=== PATIENT | female | born 1975 | race Caucasian/White ===

== ENCOUNTER 2022-09-16 08:50 | Outpatient (CLI) | payer OTHER, SELFPAY ==
--- NOTE | 2022-09-16 09:15 | CRLHL7_ITS ---
For Patients: As a result of the Century Cures Act, medical imaging exams and procedure reports are released immediately into your electronic medical record. You may view this report before your referring provider. If you have questions, please contact your health care provider. BILATERAL SCREENING MAMMOGRAM WITH COMPUTER-AIDED DETECTION AND TOMOSYNTHESIS TECHNIQUE: CC and MLO views were obtained. These mammographic images have been obtained using full-field digital technique. These mammographic images were interpreted with the benefit of computer-aided detection. Breast Tomosynthesis was used in this interpretation. COMPARISON FILM: 02/22/18, 02/28/16, 04/03/14. FINDINGS: The breasts are heterogeneously dense, which may obscure small masses IMPRESSION: There is no radiographic evidence for malignancy. ASSESSMENT: BI-RADS Category 1: Negative RECOMMENDATION: Routine screening mammogram in 1 year. A lay language report of this examination will be provided to the patient. Jesse Rebolledo M.D. Diagnostic Radiologist [email or web address] NAOMI/Dictated by: Jesse Rebolledo MD @ 09/16/2022 11:28:00 AM (Electronically Signed)
== END 2022-09-16 08:51 | disposition home or self-care (01) ==
PROVIDERS: PCP Internal Medicine; Visit Provider Obstetrics & Gynecology
DX: Z12.31 Encounter for screening mammogram for malignant neoplasm of breast (principal); R92.2 Inconclusive mammogram
CPT/HCPCS: 77063; 77067

== ENCOUNTER 2022-10-23 07:00 | Outpatient (CLI) | payer OTHER, SELFPAY ==
--- NOTE | 2022-10-23 07:15 | MR_ITS ---
[address] [address] Phone:?[phone] Fax:?[phone] Referring Physician Information: Anitra Ortiz M.D. [address] [facility] [address] Phone:?[phone] Fax:?[phone] Patient:Maty Negron D.O.B:?1975 Sex:?Female Phone:?[phone] [facility] MRN:?[id number] Exam Date:?10/23/2022 ? EXAM: MRI EXAMINATION OF THE RIGHT KNEE CLINICAL INFORMATION: Right knee pain. No history of surgery to this area. Concern for possible meniscal tear. Locking. TECHNICAL INFORMATION: Coronal PD and STIR. Axial PD and T2 fat saturation. Sagittal PD and PD fat saturation images acquired. No prior studies for comparison. INTERPRETATION: Bones: There is a minimal appearance of marrow edema signal which involves the mid to anterior periphery of the medial tibial plateau. Patchy subchondral cystic changes involving the patellofemoral compartment. No occult fracture or AVN. No other abnormal bone marrow edema pattern is identified. Ligaments and tendons: The medial collateral ligament is intact, without acute sprain or tear. The iliotibial band, fibular collateral ligament, biceps femoris tendon and popliteus tendon all are intact. The anterior cruciate ligament is intact without acute sprain or tear. The posterior cruciate ligament is intact. Extensor Mechanism: The patellar and quadriceps tendons are intact. The medial and lateral retinacula are intact. Knee Joint: There is a tiny knee joint effusion. There is a small to moderate-sized slender and lobulated popliteal cyst. There is no discrete loose body seen within the joint. Medial Compartment: There is peripheral undersurface tearing identified extending from the midportion of the anterior horn medial meniscus and into the anterior root insertion. No other medial meniscal tear. No displaced flap fragment or parameniscal cyst. There is no focal chondral defect. No other significant changes of chondromalacia. Lateral Compartment: Localized undersurface fraying versus poorly defined, mild tearing involving the far posterior horn lateral meniscus. No displaced flap fragment or parameniscal cyst. There is no focal chondral defect. No other significant changes of chondromalacia. Patellofemoral articulation: There are grade 3 and 4 changes of chondromalacia involving the inferior three fourths of the lateral patellar facet as well as along the central midline patella. Grade 3 and IV chondromalacia involves the mid to inferior midline and adjacent portions of the medial and lateral trochlear groove. CONCLUSION: 1. Peripheral undersurface tear extends from the midportion of the anterior horn medial meniscus and into the anterior root insertion. No flap fragment or parameniscal cyst. 2. Localized undersurface fraying versus poorly defined, mild tearing involving the far posterior horn lateral meniscus. 3. 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 4. There is a tiny joint effusion as well as a small to moderate-sized popliteal cyst. No discrete loose body within the joint. 5. The cruciate ligaments are intact. No other residua of a ligament injury involving the knee. KES Electronically signed on 10/23/2022 10:14:00 AM by Gary Boone M.D.
== END 2022-10-23 07:01 | disposition home or self-care (01) ==
LOC: MRI 07:01
PROVIDERS: PCP Internal Medicine; Visit Provider Family Medicine
DX: M25.561 Pain in right knee (principal); M23.211 Derangement of anterior horn of medial meniscus due to old tear or injury, right knee; M23.251 Derangement of posterior horn of lateral meniscus due to old tear or injury, right knee; M22.41 Chondromalacia patellae, right knee; M25.461 Effusion, right knee; M71.21 Synovial cyst of popliteal space [Baker], right knee
CPT/HCPCS: 73721

== ENCOUNTER 2024-02-23 14:45 | Outpatient (CLI) | payer OTHER, SELFPAY ==
--- OUTSIDE RECORDS SUMMARY | 2024-02-23 14:49 | XMS_ITS | Clinical Summary ---
Author Organization [facility] Address [address], [place] [address] Care Team Providers Care Organ Installer Name Role Phone Sandra Mooney MD Primary Care Provider [phone]- [phone] Source Comments You are receiving this document as you are listed as the primary care provider,follow-up provider, or the patient has been referred to you for consultation.This is in compliance with the Medicare and[facility] EHR Incentive Program,which states Providers who transition their patient to another setting of careor provider of care or refers their patient to another provider of care shouldprovide summary care record for each transition of care or referral. [employer] Allergies No known active allergies Medications Medication Sig Dispensed Refills Start Date End Date Status multivitamin (THERAGRAN) tablet Take 1 Tablet by mouth daily. Active naproxen (NAPROSYN) 500 MG tablet Take 1 Tablet by mouth two times a day with meals. 60 Tablet 1 08/19/2020 Active Active Problems Problem Noted Date Diagnosed Date Sicca 08/19/2020 History of episcleritis 08/19/2020 Family history of rheumatoid arthritis 0 Polyarthralgia 08/19/2020 Social History Tobacco Use Types Packs/Day Years Used Date Smoking Tobacco: Never Smokeless Tobacco: Never Sex and Gender Information Value Date Recorded Sex Assigned at Not on file Gender Identity Not on file Sexual Orientation Not on file Last Filed Vital Signs Vital Sign Reading Time Taken Comments Blood Pressure 123/77 08/19/2020 12:57 PM MEAT PROCESSOR Pulse 72 08/19/2020 12:57 PM MEAT PROCESSOR Temperature 36.1 ??C (97 ??F) 08/19/2020 12:57 PM MEAT PROCESSOR Respiratory Rate - - Oxygen Saturation - - Inhaled Oxygen Concentration - - Weight - - Height - - Body Mass Index - - Plan of Treatment Health Maintenance Due Date Last Done Comments Cervical Cancer Screening Due 1975 Colon Cancer Screening Plan Due 1975 Hep C Screening (Preventive Services) 1975 Mammogram 1975 HIV Screening (Preventive Services) 1990 Adult Preventive Visit 01/28/1992 HepB (1) 1993 Cholesterol 2019 COVID-19 Vaccine (3 - 2022- season) 2023 12/23/2020, 12/02/2020 Zoster/Shingles (1 of 2) 01/28/2024 Influenza (Season Ended) 2024 020, 06/07/2019, 06/01/2018, Additional history exists DTaP/Tdap/Td (3 - Tdap) 06/20/2030 06/20/2020, 01/29 HepA Aged Out 03/05/2017 No longer eligi ble based on patient's age to complete this topic Hib Aged Out No longer eligi ble based on patient's age to complete this topic IPV (Polio) Aged Out No longer eligi ble based on patient's age to complete this topic MCV4 Aged Out No longer eligi ble based on patient's age to complete this topic Pneumococcal Aged Out No longer eligi ble based on patient's age to complete this topic Care Teams Organ Installer Relationship Specialty Start Date End Date Sandra Mooney MD [address] [place] [address] PCP - General Internal Medicine 07/22/20
== END 2024-02-23 14:46 | disposition home or self-care (01) ==
PROVIDERS: PCP Internal Medicine; Visit Provider Family Medicine
DX: M25.541 Pain in joints of right hand (principal); M25.542 Pain in joints of left hand; M25.60 Stiffness of unspecified joint, not elsewhere classified
CPT/HCPCS: 80053; 82550; 84550; 86039; 86140; 86200; 86225; 86431; 86812

== ENCOUNTER 2024-03-28 11:40 | Emergency (ER) | payer OTHER, SELFPAY ==
[2024-03-28 11:46] VITALS: BP 138/82; PULSE 72; RESP 18; TEMP 36.5; O2SAT 99; BMI 25.8
--- OUTSIDE RECORDS SUMMARY | 2024-03-28 13:09 | XMS_ITS | Clinical Summary ---
Author Organization [facility] Address [address], [place] [address] Care Team Providers Care Health Care Technician Name Role Phone Sandra Mooney MD Primary Care Provider [phone]- [phone] Source Comments You are receiving this document as you are listed as the primary care provider,follow-up provider, or the patient has been referred to you for consultation.This is in compliance with the Medicare and[facility] EHR Incentive Program,which states Providers who transition their patient to another setting of careor provider of care or refers their patient to another provider of care shouldprovide summary care record for each transition of care or referral. [employer] Allergies No known active allergies Medications Medication [...] Comments Blood Pressure 123/77 08/19/2020 12:57 PM WEB SITE ADMIN Pulse 72 08/19/2020 12:57 PM WEB SITE ADMIN Temperature 36.1 ??C (97 ??F) 08/19/2020 12:57 PM WEB SITE ADMIN Respiratory Rate - - Oxygen Saturation - [...] 12/02/2020 Zoster/Shingles (1 of 2) 01/28/2024 Influenza (#1) 2024 06/13/2020, 04/2019, 06/01/2018, Additional history exists DTaP/Tdap/Td (3 - [...] age to complete this topic Care Teams Health Care Technician Relationship Specialty Start Date End Date Sandra Mooney MD [address] [place] [address] PCP - General Internal Medicine 07/22/20
--- NOTE | 2024-03-28 13:19 | ED_ITS ---
HPI - General Adult General Chief complaint: Unspecified Complaint, Adult Stated complaint: covid +,dehydrated Time Seen by Provider: 03/28/24 12:54 History of Present Illness HPI narrative: This 49-year-old female comes in reporting nausea symptoms and decreased oral intake. She was diagnosed with COVID 8 days ago and reports poor oral intake due to nausea over the past 5 days. She arrives here with normal vital signs. She does not report any shortness of breath. She does not have report of pain. Related Data Previous Rx's ?Medication ?Instructions ?Recorded amoxicillin 500 mg tablet 500 mg PO TID #21 tabs 03/23/24 ondansetron 4 mg disintegrating 4 mg PO Q6H #20 tabs 03/28/24 tablet Allergies Allergy/AdvReac Type Severity Reaction Status Date / Time No Known Allergies Allergy Unknown Unknown Verified 02/23/24 13:52 PFSH PFSH Medical History (Updated 03/28/24 @ 14:15 by Aaron Gonzales MD) Strep throat ?J02.0 - Streptococcal pharyngitis (ICD-10) COVID ?U07.1 - COVID-19 (ICD-10) Nephrolithiasis (04/18/09) ?N20.0 - Calculus of kidney (ICD-10) Bilateral chronic knee pain ?M25.561 - Pain in right knee (ICD-10) ?M25.562 - Pain in left knee (ICD-10) ?G89.29 - Other chronic pain (ICD-10) History of temporomandibular joint disorder ?Z87.39 - Personal history of other diseases of the musculoskeletal system and connective tissue (ICD-10) Motion sickness ?T75.3XXA - Motion sickness, initial encounter (ICD-10) History of induced hypertension (04/18/09) ?Z87.59 - Personal history of other complications of , childbirth and the puerperium (ICD-10) Surgical History (Updated 02/23/24 @ 11:43 by Anitra Ortiz MD) History of urologic surgery (1976) ?Z98.890 - Other specified postprocedural states (ICD-10) Family History (Updated 02/23/24 @ 16:39 by Anitra Ortiz MD) Father Rheumatoid arthritis Paternal Grandmother Colon cancer, Onset Age: 65 Paternal Grandfather Myocardial infarction, Onset Age: 70 Mother Early onset Alzheimer's dementia, Onset Age: 50 Social History (Updated 10/30/22 @ 09:58 by Kiah Cm ~ [facility] [address], [facility] [address]) Smoking Status: Never smoker Do you use any of these nicotine containing products: None Second hand tobacco smoke exposure: No How often do you have a drink containing alcohol: never AUDIT-C Alcohol total score: 0 Non-prescribed substance use: denies use Exam Const: Vital Signs, click to edit/add: Vital Signs - 24 hr 03/28/24 11:46 Temperature 97.7 F Pulse Rate [Right Pulse Oximeter] 72 Respiratory Rate 18 Blood Pressure [Ri ght Upper Arm] 138/82 Pulse Oximetry 99 Oxygen Delivery Me thod Room Air Course Vital Signs Vital signs: Initial Vital Signs Temperature 97.7 F 03/28/24 11:46 Temperature Source Temporal Artery Scan 03/28/24 11:46 Pulse Rate 72 03/28/24 11:46 Respiratory Rate 18 03/28/24 11:46 Blood Pressure 138/82 03/28/24 11:46 Blood Pressure Mean 100 03/28/24 11:46 Blood Pressure Position Sitting 03/28/24 11:46 Pulse Oximetry 99 03/28/24 11:46 Oxygen Delivery Method Room Air 03/28/24 11:46 Vital Signs Temperature 97.7 F 03/28/24 11:46 Pulse Rate 72 03/28/24 11:46 Respiratory Rate 18 03/28/24 11:46 Blood Pressure 138/82 03/28/24 11:46 Pulse Oximetry 99 03/28/24 11:46 Oxygen Delivery Method Room Air 03/28/24 11:46 Temperature 97.7 F 03/28/24 11:46 Pulse Rate 72 03/28/24 11:46 Respiratory Rate 18 03/28/24 11:46 Blood Pressure 138/82 03/28/24 11:46 Pulse Oximetry 99 03/28/24 11:46 Oxygen Delivery Method Room Air 03/28/24 11:46 Medications Administered Medications: Discontinued Medications Generic Name Dose Route Start Last Admin Trade Name Freq PRN Reason Stop Dose Admin Dextrose/Sodium Chloride 1,000 mls @ 1,000 mls/hr 03/28/24 13:03 03/28/24 13:25 5 % Dextrose/0.45% Sod Chlor IV 03/28/24 14:02 1,000 mls/hr .Q1H ONE Administration Ondansetron HCl 4 mg 03/28/24 13:03 03/28/24 13:25 Ondansetron 2 Mg/Ml Inj IVP 03/28/24 13:04 4 mg ONCE ONE Administration Medical Decision Making MDM Narrative Medical decision making narrative: This patient arrives with normal vital signs but states that she has not had much to eat or drink over the past several days and complains of significant amounts of nausea. An IV was established and labs are acquired. Labs all returned with normal findings. The patient did receive a L of D5 half normal saline and Zofran 4 mg. The patient states that she is feeling significantly better. She is okay to be discharged home and did receive a prescription for Zofran. Lab Data Labs: Lab Results 03/28/24 Range/Units 13:28 WBC 3.87 L (4.50-11.00) K/uL RBC 4.51 (4.00-5.20) m/uL Hgb 13.2 (12.0-16.0) gm/dL Hct 40.0 (33.0-51.0) % MCV 89 (80-100) fL MCH 29 (26-34) pg MCHC 33 (32-36) gm/dL RDW Coeff of Charles 12.0 (11.5-15.5) % Plt Count 219 (140-440) K/uL Neut % (Auto) 65.8 (42.0-72.0) % Lymph % (Auto) 26.4 (20-44) % Early % (Auto) 7.0 (0.0-11.0) % Eos % (Auto) 0.3 (0.0-7.0) % Baso % (Auto) 0.5 (0.0-3.0) % Neut # (Auto) 2.50 (1.7-7.0) K/uL Lymph # (Auto) 1.00 (0.90-2.90) K/uL Early # (Auto) 0.30 (0.00-0.90) K/UL Eos # (Auto) 0.00 (0.00-0.50) K/uL Baso # (Auto) 0.00 (0.00-0.30) K/uL Abs Immat Gran (auto) 0.00 (0.00-0.30) K/uL Imm/Tot Granulo (auto) 0.0 % Sodium 139 (135-149) mmol/L Potassium 3.8 (3.6-5.1) mmol/L Chloride 106 (96-114) mmol/L Carbon Dioxide 28 (20-32) mmol/L Anion Gap 5 L (7-15) mEq/L BUN 7 (7-30) mg/dL Creatinine 0.5 (0.5-1.5) mg/dL Estimated Creat Clear 96.69 Estimated GFR 114 ml/min Glucose 96 (60-115) mg/dL Calcium 9.2 (8.4-10.6) mg/dL Discharge Plan Discharge Clinical Impression: Volume depletion, Nausea Patient Disposition: Home, Self-Care Condition: Improved Additional Instructions: Take medication as needed and indicated. Increase diet as tolerated. Follow up with MD return if worsening. Prescriptions: New ondansetron 4 mg tablet,disintegrating 4 mg PO Q6H Qty: 20 0RF No Action amoxicillin 500 mg tablet 500 mg PO TID Qty: 21 0RF Follow Up/Referrals: Sandra Mooney MD [Primary Care Provider] - Stand Alone Forms: [facility] [employer] Info Instructions
[2024-03-28] MEDS: ONDANSETRON 2 MG/ML inj 4 MG IVP (13:25)
[2024-03-28] MEDS: 5 % DEXTROSE/0.45% SOD CHLOR 1,000 ML 1000 ML IV (13:25)
[2024-03-28 13:39] LABS: Basophils Percent Auto 0.5 % (0.0-3.0); Eosinophils Percent Auto 0.3 % (0.0-7.0); Hemoglobin* 13.2 gm/dL (12.0-16.0); Lymphocytes Percent Auto 26.4 % (20-44); Mean Corpuscular HGB Conc 33 gm/dL (32-36); Mean Corpuscular Hemoglobin 29 pg (26-34); Mean Corpuscular Volume 89 fL (80-100); Neutrophils Percent Auto 65.8 % (42.0-72.0); Platelet Count* 219 K/uL (140-440); Red Blood Count 4.51 m/uL (4.00-5.20); White Blood Count* 3.87 K/uL (4.50-11.00)
[2024-03-28 13:45] LABS: Slide Review Reflex No
[2024-03-28 13:53] LABS: Chloride* 106 mmol/L (96-114); Potassium* 3.8 mmol/L (3.6-5.1); Sodium* 139 mmol/L (135-149)
[2024-03-28 13:56] LABS: Anion Gap 5 mEq/L (7-15); Blood Urea Nitrogen* 7 mg/dL (7-30); Calcium* 9.2 mg/dL (8.4-10.6); Carbon Dioxide* 28 mmol/L (20-32); Creatinine* 0.5 mg/dL (0.5-1.5); Est. Creatinine Clearance* 96.69; Estimated Glomerular Filt Rate 114 ml/min; Glucose* 96 mg/dL (60-115)
== END 2024-03-28 14:45 | disposition home or self-care (01) ==
PROVIDERS: Emergency Provider Emergency Medicine Emergency Medical Services; PCP Internal Medicine
DX: E86.9 Volume depletion, unspecified (principal); R11.0 Nausea
CPT/HCPCS: 36415; 80048; 85025; 96361; 96374; 99284; J2405; S5010

== ENCOUNTER 2024-07-13 08:57 | Outpatient (CLI) | payer OTHER, SELFPAY ==
--- OUTSIDE RECORDS SUMMARY | 2024-07-13 08:59 | XMS_ITS | Clinical Summary ---
Author Organization [facility] Address [address], [place] [address] Care Team Providers Care Passenger Barge Master Name Role Phone Sandra Mooney MD Primary Care Provider [phone]- [phone] Source Comments You are receiving this document as you are listed as the primary care provider,follow-up provider, or the patient has been referred to you for consultation.This is in compliance with the Medicare and[facility] Hospital[facility] EHR Incentive Program,which states Providers who transition their patient to another setting of careor provider of care or refers their patient to another provider of care shouldprovide summary care record for each transition of care or referral. [employer] Allergies No known active allergies Medications Medication [...] Comments Blood Pressure 123/77 08/19/2020 12:57 PM PASSENGER BARGE MASTER Pulse 72 08/19/2020 12:57 PM PASSENGER BARGE MASTER Temperature 36.1 ??C (97 ??F) 08/19/2020 12:57 PM PASSENGER BARGE MASTER Respiratory Rate - - Oxygen Saturation - [...] Visit 01/28/1992 HepB (1) 1993 Cholesterol 2019 Zoster/Shingles (1 of 2) 01/28/2024 COVID-19 Vaccine (3 - season) 2024 12/23/2020, 12/02/2020 Influenza (#1) 2024 06/13/2020, 04/2019, 06/01/2018, Additional history exists DTaP/Tdap/Td (3 - Tdap) 06/20/2030 06/20/2020, 01/29 HepA Aged Out 03/05/2017 No longer eligi ble based on patient's age to complete this topic Hib Aged Out No longer eligi ble based on patient's age to complete this topic IPV (Polio) Aged Out No longer eligi ble based on patient's age to complete this topic RSV Aged Out No longer eligi ble based on patient's age to complete this topic MCV4 Aged Out No longer eligi ble based on patient's age to complete this topic Pneumococcal Aged Out No longer eligi ble based on patient's age to complete this topic Care Teams Passenger Barge Master Relationship Specialty Start Date End Date Sandra Mooney MD [address] [place] [address] PCP - General Internal Medicine 07/22/20
--- NOTE | 2024-07-13 09:15 | MR_ITS ---
[address] [address] Phone:?[phone] Fax:?[phone] Referring Physician Information: Jose Florian M.D. [address] [facility] [address] Phone:?[phone] Fax:?[phone] Patient:Maty Negron Homero.O.B:?1975 Sex:?Female Phone:?[phone] [facility] MRN:?[id number] Exam Date:?07/13/2024 EXAM: MRI EXAMINATION OF THE LEFT KNEE CLINICAL INFORMATION: Left knee pain. No specific injury. No history of surgery to this area. TECHNICAL INFORMATION: Coronal PD and STIR. Axial PD and T2 fat saturation. Sagittal PD and PD fat saturation images acquired. No prior studies for comparison. INTERPRETATION: Bones: Localized mild marrow edema signal involves the posterior lateral aspect of the medial tibial plateau. There are subchondral cystic changes involving the lateral patellofemoral compartment. No occult fracture or AVN. No other abnormal bone marrow edema pattern is identified. Ligaments and tendons: The medial collateral ligament is intact, without acute sprain or tear. The iliotibial band, fibular collateral ligament, biceps femoris tendon and popliteus tendon all are intact. The anterior cruciate ligament is intact without acute sprain or tear. The posterior cruciate ligament is intact. Extensor Mechanism: The patellar and quadriceps tendons are intact. The medial and lateral retinacula are intact. Knee Joint: There is a small knee joint effusion. Small to moderate-sized and lobulated popliteal cyst. Series 8 image 24 as well as series 6 image 13 demonstrate a 9 mm loose body situated posterior medial to the distal PCL. Medial Compartment: Horizontal signal through the posterior horn medial meniscus continuing as a complex tear of the far posterior horn and posterior root insertion. No displaced flap fragment or parameniscal cyst. There is no focal chondral defect. No other significant changes of chondromalacia. Lateral Compartment: There is no evidence for discrete lateral meniscal tear. No displaced flap fragment or parameniscal cyst. There is a 4 mm segment of grade 3 to IV chondromalacia just medial to the mid surface of the lateral tibial plateau. No other significant changes of chondromalacia. Patellofemoral articulation: Chondromalacia with broad full-thickness cartilage loss of the midline patella and lateral facet. Additional full-thickness cartilage loss mid to superiorly of the lateral trochlear groove. CONCLUSION: 1. Complex tear of the far posterior horn and posterior root insertion of the medial meniscus with adjacent reactive marrow edema signal. 2. No lateral meniscal tear. The cruciate ligaments are intact. 3. There is a small knee joint effusion. Approximate 9 mm loose body situated posterior medial to the distal PCL. 4. Patellofemoral osteoarthritis. Broad full-thickness cartilage loss of the lateral patellofemoral compartment. Associated subchondral cystic changes. KES Electronically signed on 07/13/2024 11:16:00 AM by Gary Boone M.D.
== END 2024-07-13 08:58 | disposition home or self-care (01) ==
LOC: MRI 08:58
PROVIDERS: PCP Family Medicine; Visit Provider Orthopaedic Surgery Sports Medicine
DX: M25.562 Pain in left knee (principal); S83.242A Other tear of medial meniscus, current injury, left knee, initial encounter; M17.12 Unilateral primary osteoarthritis, left knee
CPT/HCPCS: 73721

== ENCOUNTER 2024-08-07 08:40 | Day surgery (SDC) | payer OTHER, SELFPAY ==
[2024-08-07] VITALS (11 sets, daily range): BP systolic 101–141; BP diastolic 61–84; PULSE 54–77; RESP 14–16; TEMP 36.4–36.8; O2SAT 97–100; BMI 27.0
--- OUTSIDE RECORDS SUMMARY | 2024-08-07 08:42 | XMS_ITS | Clinical Summary ---
Author Organization [facility] Address [address], [place] [address] Care Team Providers Care System Support Analyst Name Role Phone Sandra Mooney MD Primary Care Provider +1- [phone] Source Comments You are receiving this document as you are listed as the primary care provider,follow-up provider, or the patient has been referred to you for consultation.This is in compliance with the Medicare and[facility] EHR Incentive Program,which states Providers who transition their patient to another setting of careor provider of care or refers their patient to another provider of care shouldprovide summary care record for each transition of care or referral. [employer] Allergies No known active allergies Medications Medication [...] Comments Blood Pressure 123/77 08/19/2020 12:57 PM TELETYPE OPERATOR Pulse 72 08/19/2020 12:57 PM TELETYPE OPERATOR Temperature 36.1 C (97 F) 08/19/2020 12:57 PM TELETYPE OPERATOR Respiratory Rate - - Oxygen Saturation - [...] age to complete this topic Care Teams System Support Analyst Relationship Specialty Start Date End Date Sandra Mooney MD [address] [place] [address] PCP - General Internal Medicine 07/22/20
--- NOTE | 2024-08-07 08:53 | W.PM.H&PU ---
History & Physical Update History & Physical Update H&P Reviewed and patient assessed: No changes noted
[2024-08-07 09:29] LABS: Ur HCG Qualitative* Negative (Negative)
[2024-08-07] MEDS: LACTATED RINGERS 1000 ML 1,000 ML 100 ML IV (10:43)
[2024-08-07] MEDS: CEFAZOLIN 2 GM in 0.9 % SODIUM CHLORIDE Mini-bag 100 ML IVPB (10:59)
--- NOTE | 2024-08-07 11:04 | W.ANESCHARGE ---
Anesthesia Charges Start Date/Time Anesthesia Start Date: 08/07/24 Anesthesia Start Time: 10:43 Stop Date/Time Anesthesia Stop Date: 08/07/24 Anesthesia Stop Time: 12:22
--- NOTE | 2024-08-07 11:53 | W.ANESCHARGE ---
Anesthesia Charges Start Date/Time Anesthesia Start Date: 08/07/24 Anesthesia Start Time: 10:43 Stop Date/Time Anesthesia Stop Date: 08/07/24 Anesthesia Stop Time: 12:22
--- NOTE | 2024-08-07 12:14 | P.ORPRC_ITS ---
Procedure Note Date of procedure: 08/07/24 Procedure: PREOPERATIVE DIAGNOSIS: 1. Left knee medial meniscus root tear 2. Left knee loose body POSTOPERATIVE DIAGNOSIS: 1. Left knee medial meniscus root tear, subacute 2. 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 Left knee grade 3 chondromalacia small region medial femoral condyle and lateral femoral condyle PROCEDURE: 1. Left knee arthroscopic partial medial meniscus root repair 2. Left knee microfracture intercondylar notch SURGEON: Jose Florian M.D. RESEARCH AND DEVELOPMENT TECHNICIAN: Jeffery FERRARO. Of note, a skilled first assistant manager was critical for this case to aid in patient positioning, knee manipulation, skill to manipulate arthroscopic instruments and camera, instrument exchange, and closure. ANESTHESIA: Spinal EBL: 10 mL TOURNIQUET: 40 minutes at 250 torr IMPLANTS: Arthrex 4.75 MM peek SwiveLock suture anchor COMPLICATIONS: None evident INDICATIONS: The patient is a pleasant 49-year-old female who has experienced left knee pain particularly with any twisting or turning. Physical exam was concerning for medial meniscus tear, this was confirmed on MRI, but more specifically as at the posterior root. The medial meniscus had otherwise extruded into the medial gutter. Attempted nonoperative management has been tried, and failed. Thus, surgery was recommended for stabilization of the medial meniscus posterior root. FINDINGS: Grade 4 chondromalacia patella and trochlear groove broadly. Grade 3 chondromalacia and a small region measuring 5 x 6 mm in the lateral femoral condyle near the central weight-bearing portion. Small region grade 3 chond romalacia lateral femoral condyle more distal aspect measuring 5 x 8 mm. The reportedly a loose body was present in the posterior medial aspect of the knee adjacent to the PCL/posterior to the PCL. This was not able to be palpated, visualized, or retrieved during this procedure. DESCRIPTION OF PROCEDURE: After a thorough discussion of risks, benefits, and alternatives, the patient was brought to the operating room and placed upon the operating table. Induction of anesthesia was undertaken as previously noted. 1 g IV Ancef was administered within 1 hr of incision preoperatively. Appropriate time-out was performed identifying proper patient, site, and procedure. The left lower extremity was prepped and draped in the appropriate sterile fashion using ChloraPrep. The limb was exsanguinated and tourniquet inflated. Anterolateral and anteromedial portals were established with an 11 blade, and a diagnostic arthroscopy was performed. This identified the findings as noted above. Following the diagnostic arthroscopy, the meniscal root was debrided with a 4.0 mm torpedo shaver. This was to freshen the meniscal edge. This also allowed us to debride some the synovium on the medial wall within the notch. A flip cutter guide for the posterior meniscus root was utilized and placed in the desired fashion where the medial meniscus posterior root should attach. A 6 mm flip cutter was then drilled up from the medial tibial crest region, and exited exactly where our desired spot was. The blade was flipped, and it was retro drilled approximately 5-10 mm deep. Attention was then turned to securing of the meniscal root. The meniscal scorpion device was utilized to pass 2 separate # 0 fiber link sutures in a luggage tag fashion. Excellent security of the meniscus was achieved. These tails were brought down through the bone tunnel that was drilled with the flip cutter, using a shuttle suture. After providing tension on this, the meniscus indeed became stable, and improved in position. The sutures were anchored with a 4.75 mm peek SwiveLock suture anchor after drilling, tapping, and placing the anchor. The meniscus was reprobed and found to be stable. At this stage, the Arthrex power pick device was utilized to microfracture the intercondylar notch to aid with the healing of the meniscus repair. Instruments were removed, excess fluid was drained, and closure performed with 2-0 Vicryl for subcutaneous closure of the tibial incision, and 4-0 Monocryl for subcuticular closure and portal closure. with Steri-Strips. Dressings were applied, the tourniquet deflated, and the patient was awoken from anesthesia and transferred to the PACU in stable condition. A skilled first assistant manager was critical for this case to aid in patient positioning, knee manipulation, skill to manipulate arthroscopic instruments and camera, instrument exchange, and closure. PLAN: 1. Toe-touch weightbear left lower extremity. Crutch / walker ambulation assistance PRN. 2. Ice, acetominophen and/or ibuprofen, and oxycodone for pain as needed. 3. Knee range of motion and quad sets/straight leg raise regularly 4. Follow up with PA visit in 1-2 weeks for a wound check.
[2024-08-07] MEDS: IBUPROFEN 200 MG TABLET 400 MG PO (13:15)
--- NOTE | 2024-08-07 13:39 | P.NB_ITS ---
Nerve Block Nerve Block Time Seen by Provider: 12:15 Date Seen: 08/07/24 Type of block requested by surgeon for post-operative analgesia: geniculars Side: left Time out performed: Yes Verification of patient name: Yes Verification of date of : Yes Site marking: site marked Name of person performing procedure: Amrit Greenfield Continuous monitoring Was continuous monitoring of O2 sat, B/P, monitor worker, recorded every 15 minutes?: Yes Procedure Checklist: sterile prep, needles and gloves Ultrasound guided. Images saved: No Medications given in 5ml increments after negative aspiration: Ropivicaine %: 0.5 mL: 12 Needle gauge: 25 Patient tolerated procedure well: Yes Additional comments: Injected in 4ml increments after negative aspiration Block Charges Block Charge (with Pro Fee): Genicular Nerve Block Use of Ultrasound Machine for Block: No
== END 2024-08-07 13:58 | disposition home or self-care (01) ==
LOC: OR 08:40
PROVIDERS: Anesthesiology; PCP Family Medicine; Visit Provider Orthopaedic Surgery Sports Medicine
PROC: (CPT 29870; principal; 2024-08-07 11:00)
DX: S83.242A Other tear of medial meniscus, current injury, left knee, initial encounter (principal); M23.42 Loose body in knee, left knee; M94.262 Chondromalacia, left knee; G89.18 Other acute postprocedural pain
CPT/HCPCS: 29882; 29879; 01400; 64454; 81025; A9270; C1713; J0690; J1100; J2250; J2405; J2704; J2795; J3010; J7120; L1833

== ENCOUNTER 2024-08-25 10:50 | Emergency (ER) | payer OTHER, SELFPAY ==
[2024-08-25 11:26] VITALS: BP 129/67; PULSE 69; RESP 16; TEMP 36.6; BMI 26.4
--- NOTE | 2024-08-25 11:32 | CRLHL7_ITS ---
For Patients: As a result of the Century Cures Act, medical imaging exams and procedure reports are released immediately into your electronic medical record. You may view this report before your referring provider. If you have questions, please contact your health care provider. INDICATION: LLE pain post op. TECHNIQUE: Ultrasound venous duplex lower left extremity. Compression venous exam was performed using levine-scale, color Doppler, and spectral Doppler analysis. COMPARISON: None. FINDINGS: Deep veins: Sonographic imaging demonstrates the left common femoral, deep femoral, superficial femoral, popliteal, posterior tibial and the contralateral right common femoral veins to be fully compressible with normal color Doppler blood flow. Superficial veins: Greater saphenous vein is fully compressible. No popliteal cyst. IMPRESSION: No DVT in the left lower extremity. Dictated by Beata Youssef MD @ 08/25/2024 12:27:32 PM (Electronically Signed)
--- NOTE | 2024-08-25 12:15 | ED.GENADULT ---
HPI - General Adult General Chief complaint: Extremity Pain/Injury, Lower Stated complaint: post op left calf pain Time Seen by Provider: 08/25/24 11:33 History of Present Illness HPI narrative: This 49-year-old female comes in with pain and swelling in her left calf region. She did have a meniscus repair surgery done recently and understands that this may be postoperative changes however a visit here is indicated to rule out deep venous thrombosis. The patient is not report any chest pain or shortness of breath. She has been taking ibuprofen for sufficient pain relief. Related Data Home Medications ?Medication ?Instructions ?Recorded ?Confirmed ibuprofen 200 mg tablet 800 mg PO TID-QID PRN 08/17/24 08/17/24 Previous Rx's ?Medication ?Instructions ?Recorded hydroxychloroquine 200 mg tablet 200 mg PO QDAY #90 tabs 08/24/24 (Plaquenil) Allergies Allergy/AdvReac Type Severity Reaction Status Date / Time No Known Allergies Allergy Unknown Unknown Verified 08/17/24 10:56 Review of Systems Status of ROS: Reports: 10 or more systems reviewed and unremarkable except as noted in History and below Narrative: Constitutional: No fevers, no weight gain or loss. Eyes: No discharge. No vision changes. HENT: No congestion, no sore throat, no ear pain. Cardiovascular: No chest pain, no palpitations. Respiratory: No shortness of breath, no wheezes, no cough. Gastrointestinal: No abdominal pain, no vomiting, no diarrhea. Genitourinary: No dysuria, no hematuria. Musculoskeletal: Recent surgery to the left knee with associated swelling and ecchymosis. Skin: No rashes, no pruritis. Neurological: No dizziness, weakness, sensory change, speech change. Endo/Heme/Allergies: No bruising or bleeding. No polydipsia. Pysch: no suicidality, no anxiety, no insomnia. All other systems reviewed and are negative. [facility] Medical History (Updated 08/25/24 @ 12:21 by Aaron Gonzales MD) Strep throat ?J02.0 - Streptococcal pharyngitis (ICD-10) COVID ?U07.1 - COVID-19 (ICD-10) Nephrolithiasis (04/18/09) ?N20.0 - Calculus of kidney (ICD-10) Bilateral chronic knee pain ?M25.561 - Pain in right knee (ICD-10) ?M25.562 - Pain in left knee (ICD-10) ?G89.29 - Other chronic pain (ICD-10) History of temporomandibular joint disorder ?Z87.39 - Personal history of other diseases of the musculoskeletal system and connective tissue (ICD-10) Motion sickness ?T75.3XXA - Motion sickness, initial encounter (ICD-10) History of induced hypertension (04/18/09) ?Z87.59 - Personal history of other complications of , childbirth and the puer[place]ium (ICD-10) Surgical History (Updated 08/17/24 @ 14:18 by Navin Fuentes PA-C) S/P arthroscopic partial medial meniscectomy of left knee (08/07/24) ?Z98.890 - Other specified postprocedural states (ICD-10) ?Z87.828 - Personal history of other (healed) physical injury and trauma (ICD-10) History of urologic surgery (1976) ?Z98.890 - Other specified postprocedural states (ICD-10) Family History (Updated 02/23/24 @ 16:39 by Anitra Ortiz MD) Father Rheumatoid arthritis Paternal Grandmother Colon cancer, Onset Age: 65 Paternal Grandfather Myocardial infarction, Onset Age: 70 Mother Early onset Alzheimer's dementia, Onset Age: 50 Social History (Updated 07/25/24 @ 08:57 by Anitra Ortiz MD) Narrative: , MD, [facility], 3 children Does not drink alcohol Lifetime non smoker exercise walking dogs Smoking Status: Never smoker Do you use any of these nicotine containing products: None Second hand tobacco smoke exposure: No How often do you have a drink containing alcohol: never AUDIT-C Alcohol total score: 0 Non-prescribed substance use: denies use Caffeine: Yes (1 cup) Are you using contraception or practicing any form of control: No service: No Exam Narrative: Exam Narrative: Constitutional: Well-developed, well-nourished, no acute distress. HEENT: Normocephalic, atraumatic. Neck: Normal range of motion. Nontender. Supple. Heart: Intact distal pulses. Lungs: No chest discomfort. No wheezes, rhonchi, or rales. Abdomen: Nontender. Back: Normal range of motion. Extremities: Surgical wounds to left knee appear normal. There is typical swelling with some ecchymosis status post surgery. Skin: Intact. No rash. Warm. No erythema or pallor. Neurologic: No altered sensation. No weakness. Alert and oriented. Psychiatric: No suicidality. No anxiety or depression. No insomnia. Nursing notes and vitals signs are reviewed. Const: Vital Signs, click to edit/add: Vital Signs - 24 hr 08/25/24 11:26 Temperature 97.8 F Pulse Rate [Right Radial] 69 Respiratory Rate 16 Blood Pressure [Le ft Upper Arm] 129/67 Oxygen Delivery Me thod Room Air Course Vital Signs Vital signs: Initial Vital Signs Temperature 97.8 F 08/25/24 11:26 Temperature Source Temporal Artery Scan 08/25/24 11:26 Pulse Rate 69 08/25/24 11:26 Pulse Rhythm Regular 08/25/24 11:26 Respiratory Rate 16 08/25/24 11:26 Blood Pressure 129/67 08/25/24 11:26 Blood Pressure Mean 87 08/25/24 11:26 Oxygen Delivery Method Room Air 08/25/24 11:26 Vital Signs Temperature 97.8 F 08/25/24 11:26 Pulse Rate 69 08/25/24 11:26 Respiratory Rate 16 08/25/24 11:26 Blood Pressure 129/67 08/25/24 11:26 Oxygen Delivery Method Room Air 08/25/24 11:26 Temperature 97.8 F 08/25/24 11:26 Pulse Rate 69 08/25/24 11:26 Respiratory Rate 16 08/25/24 11:26 Blood Pressure 129/67 08/25/24 11:26 Oxygen Delivery Method Room Air 08/25/24 11:26 Medical Decision Making [facility] Narrative Medical decision making narrative: This patient has some postoperative pain and swelling in the left calf after having knee surgery. An ultrasound is obtained which shows no evidence of deep venous thrombosis. This was reassuring to the patient. She is okay to be discharged home to resume current plans. Discharge Plan Discharge Clinical Impression: Post-operative pain Patient Disposition: Home w/ Parent or Adult Condition: Stable Additional Instructions: Continue current plans. Increase activity as tolerated. Follow up with MD return if worsening. Prescriptions: No Action ibuprofen 200 mg tablet 800 mg PO TID-QID PRN hydroxychloroquine [Plaquenil] 200 mg tablet 200 mg PO QDAY Qty: 90 0RF Follow Up/Referrals: Anitra Ortiz MD [Primary Care Provider] - Stand Alone Forms: [employer] Info Instructions
== END 2024-08-25 12:31 | disposition home or self-care (01) ==
LOC: ED 12:26
PROVIDERS: Emergency Provider Emergency Medicine Emergency Medical Services; PCP Family Medicine
DX: G89.18 Other acute postprocedural pain (principal); M79.662 Pain in left lower leg
CPT/HCPCS: 93971; 99283; 99284

== ENCOUNTER 2024-10-23 14:31 | Outpatient (CLI) | payer OTHER, SELFPAY ==
--- NOTE | 2024-10-23 15:00 | CRLHL7_ITS ---
For Patients: As a result of the Century Cures Act, medical imaging exams and procedure reports are released immediately into your electronic medical record. You may view this report before your referring provider. If you have questions, please contact your health care provider. BILATERAL SCREENING MAMMOGRAM WITH COMPUTER-AIDED DETECTION AND TOMOSYNTHESIS TECHNIQUE: CC and MLO views were obtained. These mammographic images have been obtained using full-field digital technique. These mammographic images were interpreted with the benefit of computer-aided detection. Breast Tomosynthesis was used in this interpretation. COMPARISON FILM: 09/16/22, 02/22/18, 02/28/16. FINDINGS: The breasts are heterogeneously dense, which may obscure small masses IMPRESSION: There is no radiographic evidence for malignancy. ASSESSMENT: BI-RADS Category 1: Negative RECOMMENDATION: Routine screening mammogram in 1 year. A lay language report of this examination will be provided to the patient. Jesse Rebolledo M.D. Diagnostic Radiologist [email or web address] Transcribed: 3:07 p.luis manuel hassan/Dictated by: Jesse Rebolledo MD @ 10/24/2024 11:59:00 AM (Electronically Signed)
== END 2024-10-23 14:32 | disposition home or self-care (01) ==
LOC: MAMMO 14:31
PROVIDERS: PCP Family Medicine; Visit Provider Obstetrics & Gynecology
DX: Z12.31 Encounter for screening mammogram for malignant neoplasm of breast (principal); R92.333 Mammographic heterogeneous density, bilateral breasts
CPT/HCPCS: 77063; 77067

== ENCOUNTER 2024-11-14 14:31 | Outpatient (CLI) | payer OTHER, SELFPAY ==
[2024-11-16 14:51] LABS: HPV Source Cervical; HPV, High Risk by TMA Not Detected
== END 2024-11-14 14:32 | disposition home or self-care (01) ==
PROVIDERS: PCP Family Medicine; Visit Provider Obstetrics & Gynecology
DX: Z12.4 Encounter for screening for malignant neoplasm of cervix (principal)
CPT/HCPCS: 87624; 87625; 88141; 88142

== ENCOUNTER 2024-11-21 09:30 | Outpatient (RCR) | payer OTHER, SELFPAY | END 2024-12-25 09:45 | disposition home or self-care (01) | PROVIDERS: PCP Family Medicine; Visit Provider Physician Assistant Surgical | DX: Z51.89 Encounter for other specified aftercare (principal); Z87.828 Personal history of other (healed) physical injury and trauma | CPT/HCPCS: 97110; 97116; 97140; 97161 ==

== ENCOUNTER 2024-12-14 09:57 | Outpatient (CLI) | payer OTHER, SELFPAY | END 2024-12-14 09:58 | disposition home or self-care (01) | LOC: NFLDREF 12-17 18:53 | PROVIDERS: PCP Family Medicine; Referring Provider Family Medicine; Visit Provider Obstetrics & Gynecology | DX: Z13.6 Encounter for screening for cardiovascular disorders (principal) | CPT/HCPCS: 80061 ==

== ENCOUNTER 2025-05-08 15:09 | Outpatient (CLI) | payer OTHER, SELFPAY ==
--- NOTE | 2025-05-08 15:30 | MR_ITS ---
EXAM: MRI of the RIGHT KNEE, without contrast CLINICAL INFORMATION: Female, 50 years old, with right knee pain and inability to weight-bear. INDICATION: Evaluate for medial meniscal tear PRIOR SURGERY: None reported. PLAIN FILMS: None available. COMPARISONS: Knee MRI 10/23/2022. TECHNICAL INFORMATION: Using a 1.5T MR scanner and a localizing surface coil: sagittals: PD, T2FS coronals: PD, STIR axials: PD, T2FS SEDATION: None CONTRAST: None FINDINGS: Knee joint: Effusion: Moderate sized right knee effusion. Popliteal cyst: Moderate sized popliteal cyst with internal septations/debris, without evidence for rupture. Loose bodies: None. Subcutaneous and extra-articular soft tissues: Unremarkable. Ligaments: ACL: Intact ACL anteromedial and posterolateral bundles, without sprain or tear. PCL: Intact PCL, without acute or chronic injury. MCL: Intact MCL superficial and deep layers, without injury. LCL: Intact LCL, without injury. Posterolateral corner: No posterolateral corner soft tissue injury. A ganglion is present along the popliteus tendon in the subpopliteal fossa, without evidence for tendinosis of the femoral attachment. Biceps femoris, iliotibial band, popliteofibular ligament and lateral gastrocnemius are intact. Posteromedial corner: No posteromedial corner soft tissue injury. Semimembranosus, pes anserine tendons and posterior oblique ligament are without injury, tendinopathy or bursitis. Extensor mechanism: Patellar tendon: Intact, without tendinopathy. Quadriceps tendon: Intact, without tendinopathy. Retinacula: Medial and lateral retinacula are intact. Fat pads: Unremarkable infrapatellar Hoffa's, quadriceps and prefemoral fat pads. Medial compartment: Medial meniscus: The medial meniscus is abnormal in appearance. There is complex appearing incomplete radial tearing of the meniscus along the posterior horn/root measuring 1.0 cm in length (sagittal series 6 images 20-17). Intrasubstance degeneration of the junction of the posterior body and posterior horn. 3 mm peripheral meniscal extrusion at the level of the body. Medial femoral condyle: Grade IV chondromalacia along the central weightbearing medial femoral condyle measuring approximately 2.5 x 1.5 cm is new from the prior exam. Mild peripheral osteophytosis. Medial tibial plateau: Grade II/III chondral thinning along the periphery of the central weightbearing medial tibial plateau. Lateral compartment: Lateral meniscus: No articular surface, meniscosynovial junction or root tear. No displacement, extrusion or parameniscal cyst. Lateral femoral condyle: No chondromalacia or osteochondral abnormality. Lateral tibial plateau: No chondromalacia or osteochondral abnormality. Patellofemoral joint: Patella: Diffuse grade 2 chondral thinning of the patellar articular cartilage with grade III/IV chondromalacia of the mid lateral patellar facet, as well as a small region of grade III/IV chondromalacia of the central midline ridge with mild underlying cystic change. Mild lateral patellar osseous spurring. Trochlea: Grade IV chondromalacia of the lateral to central trochlea measuring up to 1.8 x 2.0 cm. Proximal tibiofibular joint: Unremarkable, without evidence of ligament sprain injury, joint effusion or adjacent marrow edema. Bones: No stress/occult fractures or other marrow edema/pathology. IMPRESSION: 1. Complex high-grade incomplete radial tearing of the posterior horn/root medial meniscus. 3 mm peripheral meniscal extrusion. 2. Grade IV chondromalacia along the central weightbearing medial femoral condyle measuring 2.5 x 1.5 cm, new from the prior exam. Grade II/III chondral thinning of the central medial tibial plateau. 3. Patellofemoral joint osteoarthritis with grade 3 and grade 4 changes of the lateral and central patella and trochlea. 4. No cruciate or collateral ligament sprain/tear. 5. Moderate knee joint effusion. Moderate sized popliteal cyst. KME Electronically signed on 05/09/2025 11:26:00 AM by Maribeth Vazquez M.D.
== END 2025-05-08 15:10 | disposition home or self-care (01) ==
LOC: MRI 15:10
PROVIDERS: PCP Family Medicine; Visit Provider Orthopaedic Surgery Sports Medicine
DX: M25.561 Pain in right knee (principal); S83.241A Other tear of medial meniscus, current injury, right knee, initial encounter; M17.11 Unilateral primary osteoarthritis, right knee; S83.231A Complex tear of medial meniscus, current injury, right knee, initial encounter; M94.261 Chondromalacia, right knee; M25.461 Effusion, right knee
CPT/HCPCS: 73721

== ENCOUNTER 2025-06-04 07:13 | Day surgery (SDC) | payer OTHER, SELFPAY ==
[2025-06-04] VITALS (17 sets, daily range): BP systolic 95–127; BP diastolic 50–81; PULSE 64–85; RESP 14–16; TEMP 36.7–37.2; O2SAT 95–100; BMI 27.9
--- NOTE | 2025-06-04 07:49 | W.PM.H&PU ---
History & Physical Update History & Physical Update H&P Updates: Has rheumatoid arthritis-still taking methotrexate, which should be okay. Has stopped meloxicam.
[2025-06-04] MEDS: LACTATED RINGERS 1000 ML 1,000 ML 100 ML IV ×2 (08:00→10:08)
[2025-06-04] MEDS: SODIUM CHLORIDE 0.9 % (FLUSH) 10 ML SYRINGE IVF (08:01)
[2025-06-04] MEDS: ACETAMINOPHEN 500 MG TABLET 1000 MG PO (08:32)
[2025-06-04] MEDS: MIDAZOLAM HCL 1 MG/ML inj IVP (08:32)
[2025-06-04] MEDS: OXYCODONE (CR) 10 MG TAB.ER.12H PO (08:32)
--- NOTE | 2025-06-04 08:34 | SUR.PREOP ---
TIME?OUT:?0830 PT/RN/MDA?VERIFICATION?OF?SURGICAL?SITE,?PROCEDURE,?AND?CONSENT OBTAINED?PRIOR?TO?INVASIVE?PROCEDURE.
[2025-06-04] MEDS: TRANEXAMIC ACID 100 MG/ML INJ 1000 MG IV (09:25)
--- NOTE | 2025-06-04 09:41 | SUR.OPER ---
PATIENT QUESTIONS ANSWERED SATISFACTORILY PREOPERATIVELY.? PATIENT BROUGHT TO OR #3 PER CART AFTER ADMINISTRATION OF A BLOCK.? Patient positioned supine on OR #3 bed.? The perioperative?team supported arms bilaterally on arm boards.? Final approval of positioning by surgeon.?
--- NOTE | 2025-06-04 10:43 | P.ORPRC_ITS ---
Procedure Note Date of procedure: 06/04/25 Procedure: PREOPERATIVE DIAGNOSIS: 1. Right knee osteoarthritis, primary, severe POSTOPERATIVE DIAGNOSIS: 1. Right knee osteoarthritis, primary, severe PROCEDURE: 1. Right total knee arthroplasty (Press-Fit, rotating platform) SURGEON: Jose Florian MD. MOTORS AND CONTROLS TESTER: JASMINE Jenkins - Of note, a skilled medical assistant dermatology was critical for this case to aid in patient positioning, tissue retraction, limb manipulation/positioning, and closure. ANESTHESIA: Spinal anesthetic EBL: 100ml IMPLANTS: DePuy J&J uncemented TKA - Attune PS femur size 6 narrow Size 4 tibia 5 mm RP poly spacer 35 mm Affixium patella TOURNIQUET: None COMPLICATIONS: None evident INDICATIONS: The patient is a pleasant 50-year-old female with history of rheumatoid arthritis who has experienced severe right knee pain and difficulty bearing weight. Workup included x-rays and an MRI, the latter of which revealed severe arthrosis in the knee. Given the deformity, the dysfunction, and the pain, as well as the failure of nonoperative management, recommendation was made for surgery. FINDINGS: Full-thickness chondral loss throughout the patella median ridge and lateral facet and approaching the medial facet. Also medial femoral condyle. Tricompartmental osteophytosis around the perimeter of the femur and tibia and patella. Moderate effusion upon entering the joint. DESCRIPTION OF PROCEDURE: Following a thorough discussion of risks, benefits, and alternatives consent was obtained and the right knee was marked. The patient was brought to the operating room and placed supine on the operating table. Induction of anesthesia was undertaken. 1 g IV Ancef and 1 g tranexamic acid was administered within 1 hr of incision preoperatively. Proper time-out was performed identifying proper patient, site, procedure. The operative extremity was prepped and draped in the appropriate sterile fashion using ChloraPrep after the patient was positioned supine with all bony prominences well padded. A longitudinal, anterior, midline skin incision was made starting approximately 3cm proximal to the superior pole of the patella and advanced distal to the tibial tubercle. A sub vastus approach was utilized. After mobilizing the patella, retropatellar fatpad was resected and the synovium in the suprapatellar pouch excised to visualize the anterior femoral cortex. Patellar prep began with an initial measurement/thickness of 20 mm. It was resected back to approximately 14 mm. The patella prep was completed with drilling and a trial placed followed by a thin plate protector for the duration of the femur and tibia preparation. Femoral preparation was performed via an intramedullary guide. Step drill allowed access into the femoral canal. The distal cutting guide was placed with 5? of valgus and 10 mm cut on the distal femur. Femur was sized using a posterior referencing guide in 3? of external rotation. This found have a best fit with the sizing noted above. The 4 in 1 cutting block was then placed, and the distal femur shaped accordingly. The box cut was then created and the trial implant inserted to confirm appropriate fit. We turned our attention to the proximal tibia. Extramedullary guide was utilized for cutting with the goal of being 90 degree cut from the mechanical axis of the tibia in the varus/valgus plane utilizing tibial crest as the primary alignment. Initially a 4 mm resection was performed from the medial tibial plateau. Ultimately, balancing was achieved in both flexion and extension in both varus and valgus. The knee was able to achieve full extension comfortably. It was sized to be a best fit with as noted above. At this stage, trial implants were removed, the tibia and femoral and patellar components were opened and inserted. The real poly spacer was opened and inserted. A 3 min Betadine soak performed. Finally, a final irrigation round with normal saline was performed. Closure performed with 0 PDS and #0 Stratafix for the quad tendon/retinaculum. 2-0 Vicryl/Stratafix for the subcutaneous and 4-0 Monocryl for subcuticular closure. Dressings were applied and the patient was awoken from anesthesia and transferred the PACU in stable condition. A skilled medical assistant dermatology was critical for this case to aid in patient positioning, tissue retraction, bone exposure, limb manipulation/positioning, patient safety, and closure. PLAN: 1. Weight bear as tolerated operative extremity. 2. 23 hr perioperative antibiotics. 3. Ice. 4. PT/OT consults for ambulation assistance/mobility education. 5. Social work consult for discharge planning. 6. DVT prophylaxis with at SCDs, and aspirin twice daily.
--- NOTE | 2025-06-04 10:45 | P.ANES_ITS ---
Anesthesia Charges Start Date/Time Anesthesia Start Date: 06/04/25 Anesthesia Start Time: 10:43 Stop Date/Time Anesthesia Stop Date: 06/04/25 Anesthesia Stop Time: 12:22 Coding CPT Codes CPT Codes: ANESTH KNEE ARTHROPLASTY - 82771 ([id number]) P1 - NORMAL HEALTHY PATIENT, QK - SCHEDULING SPECIALIST 2-4 CNCRNT ALICE PROC, QX - MICA SIZER SVAllison W/ MED DIRECTION
--- NOTE | 2025-06-04 10:45 | W.PM.NB ---
Nerve Block Nerve Block Time Seen by Provider: 08:35 Date Seen: 06/04/25 Type of block requested by surgeon for post-operative analgesia: adductor canal Side: right Time out performed: Yes Verification of patient name: Yes Verification of date of : Yes Site marking: site marked Name of person performing procedure: Jean Pierre Continuous monitoring Was continuous monitoring of O2 sat, B/P, monitoring engineer, recorded every 15 minutes?: Yes Procedure Checklist: sterile prep, needles and gloves Ultrasound guided. Images saved: Yes Medications given in 5ml increments after negative aspiration: Marcaine %: 0.25 mL: 5 Needle gauge: 20 and Exparel mL: 10 Patient tolerated procedure well: Yes Block Charges Block Charge (with Pro Fee): Femoral Nerve Use of Ultrasound Machine for Block: Yes- US Guidance/pain block
--- NOTE | 2025-06-04 10:45 | W.PM.NB ---
Nerve Block Nerve Block Time Seen by Provider: 08:35 Date Seen: 06/04/25 Type of block requested by surgeon for post-operative analgesia: geniculars Side: right Time out performed: Yes Verification of patient name: Yes Verification of date of : Yes Site marking: site marked Name of person performing procedure: Jean Pierre Continuous monitoring Was continuous monitoring of O2 sat, B/P, monitoring coordinator, recorded every 15 minutes?: Yes Procedure Checklist: sterile prep, needles and gloves Ultrasound guided. Images saved: Yes Medications given in 5ml increments after negative aspiration: Marcaine %: 0.25 mL: 9 Needle gauge: 25 Patient tolerated procedure well: Yes Block Charges Block Charge (with Pro Fee): Genicular Nerve Block
--- NOTE | 2025-06-04 10:45 | W.ANESCHARGE ---
Anesthesia Charges Start Date/Time Anesthesia Start Date: 06/04/25 Anesthesia Start Time: 10:43 Stop Date/Time Anesthesia Stop Date: 06/04/25 Anesthesia Stop Time: 12:22 Coding CPT Codes CPT Codes: ANESTH KNEE ARTHROPLASTY - 13829 ([id number]) P1 - NORMAL HEALTHY PATIENT, QK - EXTRUSION DIE TEMPLATE MAKER 2-4 CNCRNT ALICE PROC, QX - TELECOM MANAGER SVAllison W/ MED DIRECTION
--- NOTE | 2025-06-04 10:51 | CRLHL7_ITS ---
For Patients: As a result of the Cures Act, medical imaging exams and procedure reports are released immediately into your electronic medical record. You may view this report before your referring provider. If you have questions, please contact your health care provider. Indication: Postop knee replacement. Technique: Two views of the right knee. Comparison: Right knee radiograph 05/08/2025. Findings: A 3 component right knee arthroplasty has been placed since the previous exam. Components appear well position. No other retained radiopaque metallic surgical foreign body. Postoperative changes within the knee soft tissues. Impression: Status post right knee arthroplasty. Dictated by Best Caputo MD @ 06/04/2025 3:31:42 PM (Electronically Signed)
[2025-06-04] MEDS: PROCHLORPERAZINE 5 MG/ML VIAL IVP (11:58)
[2025-06-04] MEDS: LACTATED RINGERS 1000 ML 1,000 ML 500 ML IV (12:01)
[2025-06-04] MEDS: ACETAMINOPHEN 500 MG TABLET PO (14:36)
== END 2025-06-04 14:38 | disposition home or self-care (01) ==
LOC: OR 07:13
PROVIDERS: PCP Family Medicine; Visit Provider Orthopaedic Surgery Sports Medicine
PROC: (CPT 27447; principal; 2025-06-04 09:00)
DX: M17.11 Unilateral primary osteoarthritis, right knee (principal); G89.18 Other acute postprocedural pain; M06.9 Rheumatoid arthritis, unspecified; Z79.631 Long term (current) use of antimetabolite agent
CPT/HCPCS: 27447; 01402; 64447; 64454; 73560; 76942; 97110; 97116; 97161; A9270; C1776; J0665; J0666; J0690; J0780; J1100; J2250; J2371; J2405; J2704; J3010; J7120

== ENCOUNTER 2025-08-08 08:15 | Outpatient (RCR) | payer OTHER, SELFPAY ==
--- NOTE | 2025-06-07 09:15 | PT.OPEX ---
PT [place] Outpatient Eval PT [facility] Outpatient Eval Start: 06/06/25 12:09 Freq: Status: Active Protocol: Document 06/07/25 07:21 HLA (Rec: 06/07/25 09:11 HLA [id number]) E-signed By Delia Schwartz PT, DPT Physical Therapy Outpatient Evaluation Insurance Information Recert Due Date 09/04/25 Insurance Name [facility] Insurance [facility] insurance Information/Comments Medical Diagnosis R TKA Treating Diagnosis weakness, pain, difficulty amb after R TKA Referring MD Florian Subjective Preferred Name Maggie Subjective Pain moderate R knee, getting through her exercises, taking oxycodone and Tylenol at home. She is off her RA meds, more stiffness, but taking her meds again tomorrow. Has ice with compression, but hasn't done any compression yet. Stairs going ok-uses crutch and railing. Date of Last 06/03/25 Physician Visit Date of Surgery (If 06/03/25 applicable) Precautions Weight Bearing Weight Bear as Tolerated Status Therapy Limitations/ Not Limited Systems Review Objective Range of Motion AROM UEs WNL AROM L LE WNL AROM R hip, ankle WNL R knee by end of session seated and supine AAROM Strength UEs 5/5 L LE 5/5 R hip 5-/5, knee 3-/5, ankle 5-/5 pain Swelling circumference 10 cm prox to patella 53 cm mid patella 45 10 cm distal to patella 43 cm Balance & Gait Gait mildly flexed R knee at stance, good reciprocal gt pattern with walker, 200 feet x 2 Stairs 2 rails, at home rail + crutch, step to pattern, 2 steps x 2 sba, vc sequencing Balance fair+ with walker Sensation/Reflexes intact to light touch Assessment Assessment/ 50-year-old female with hx of OA, RA and +VITOR underwent Impression R TKA on 06/03/[address] Florian. She is off her RA meds with some stiffness reported including her L knee which had meniscal repair with root repair last year. Pt at baseline lives with her spouse in a multi-level home,3 steps to enter with railing, 15 stairs to bedroom. She arrives using her ww, some mild R knee flex at stance. Pt performed TKA ex with assist for HS, SAQ, SLR and LAQ. AAROM 12-82 by end of session. Therapist instructed pt in positioning, use of ice, activity level, bed mobility, transfers, gt with walker , stairs and car transfers today. Added tubigrip for edema R knee. Patient presents with edema, pain surgical leg, impaired ROM, impaired strength, impaired transfers and impaired ambulation. She will benefit from PT 2x/week to return to full AROM and strength R knee, community distance amb, and reciprocal stairs. Primary Functional impaired ROM, impaired strength, impaired transfers/gt Limitations and stairs, pain, edema, impaired mobility Plan of Care Rehabilitation Good Potential Physical Therapy Within 10-12 weeks: Goals 1. Pt will have knee AROM 0-120 degrees for transfers, ADLs, and stairs independence. 2. Pt will amb 20 min with se cane or no device as indicated, safely and independently for community and household ambulation. 3. Pt will be independent in home ex program for long-term pain management and to promote independence and to decrease fall risk. 4. Pt will ascend/descend 13 stairs with railing independently for community mobility. Coordination/ Referral Source,Patient Caregiver Communication With Treatment Plan/ Dry Needling,Gait Training,Ice/Cold/Vasopneumatic,Joint Direct Interventions Mobilization,Manual Therapy,Neuromuscular Re-ed, Orthotics/Braces,Self-Care/Home Management,Therapeutic Activities,Therapeutic Exercises Frequency/Duration 2x/week x 10-12 weeks Patient Will Be Completion of LTG(s),Skills Plateau,Independent w/HEP, Discharged From Independently Progressing Therapy Evaluation Billing Untimed Code 18 Treatment Minutes PT Eval No Charge No Complexity Low Certification Information Initial 06/07/25 Certification Date Ending Certification 09/04/25 Date Provider Signature Yes Required Provider Signature POC & Medical Necessity Shows Agreement With Physician NPI Number Write NPI# Here Physician Comment/ : Change Physician Signature Please Sign/Date Here & Date Requested
== END 2025-08-09 08:20 | disposition home or self-care (01) ==
PROVIDERS: PCP Family Medicine; Visit Provider Orthopaedic Surgery Sports Medicine
DX: Z47.1 Aftercare following joint replacement surgery (principal); Z96.651 Presence of right artificial knee joint; Z51.89 Encounter for other specified aftercare
CPT/HCPCS: 97110; 97112; 97116; 97140; 97161; A9270; J0780; J2250; J3010